=== PATIENT | female | born 1945 | race Caucasian/White ===

== ENCOUNTER → 2020-05-08 | Outpatient (CLI) | payer MEDICARE, BC ==
[~2020-05-08] VITALS: Ht 157.5 cm; Wt 80.3 kg
[~2020-05-08] MED LIST: amLODIPine BESYLATE 5 MG TAB ONE
== END | disposition home or self-care (01) ==
LOC: Rad HDHVI 08:43
PROVIDERS: ATTEND Internal Medicine Cardiovascular Disease
DX: I10 Essential (primary) hypertension (principal); E78.00 Pure hypercholesterolemia, unspecified; R06.02 Shortness of breath
CPT/HCPCS: 78452; 93017; 96374; A9500

== ENCOUNTER → 2020-05-13 | Outpatient (CLI) | payer MEDICARE, BC ==
[2020-05-13 11:41] LABS: Basophils # (auto) 0 10 ^3/uL (0-0.2); Basophils % (auto) 0.7 % (0.0-2.0); Eosinophils # (auto) 0.1 10 ^3/uL (0-0.8); Eosinophils % (auto) 2.2 % (0.0-7.0); Hematocrit 40.1 % (36.0-46.0); Hemoglobin 13.8 g/dL (12.2-16.2); Lymphocytes # (auto) 1.3 10 ^3/uL (0.4-5.4); Lymphocytes % (auto) 19.9 % (10.0-50.0); Mean Corpuscular Hemoglobin 32.3 pg (28.0-32.0); Mean Corpuscular Hgb Conc. 34.5 g/dL (32.0-36.0); Mean Corpuscular Volume 93.7 fL (80.0-100.0); Monocytes # (auto) 0.5 10 ^3/uL (0-1.3); Monocytes % (auto) 7.5 % (0.0-12.0); Neutrophils # (auto) 4.6 10 ^3/uL (1.6-8.6); Neutrophils % (auto) 69.7 % (37.0-80.0); Nucleated Red Blood Cells % 0.2 %; Platelet Count (auto) 297 10^3/uL (140-450); Red Blood Cells 4.28 10^6/uL (4.0-5.20); Red Cell Distribution Width 13.6 % (11.8-14.3); White Blood Cell 6.6 10^3/uL (4.4-10.8)
[2020-05-13 11:44] LABS: Urine Blood TRACE /uL (Negative); Urine Specific Gravity 1.011 (1.001-1.035)
[2020-05-13 11:58] LABS: Calcium 8.9 mg/dL (8.5-10.1); Potassium 3.9 mmol/L (3.5-5.1)
[2020-05-13 12:00] LABS: Free T4 (Free Thyroxine) 0.96 ng/dL (0.89-1.76)
[2020-05-13 12:04] LABS: BUN/Creatinine Ratio 14.9; Bilirubin, Total 0.7 mg/dL (0.2-1.0); Total Protein 7.5 g/dL (6.4-8.2)
== END | disposition home or self-care (01) ==
LOC: Rad HDHVI 08:08
PROVIDERS: ATTEND Internal Medicine Cardiovascular Disease
DX: I34.0 Nonrheumatic mitral (valve) insufficiency (principal); R06.02 Shortness of breath; D64.9 Anemia, unspecified; E11.9 Type 2 diabetes mellitus without complications; E55.9 Vitamin D deficiency, unspecified; I10 Essential (primary) hypertension; R00.2 Palpitations; R53.1 Weakness; R30.0 Dysuria; D51.3 Other dietary vitamin B12 deficiency anemia; R07.89 Other chest pain
CPT/HCPCS: 36415; 80053; 80061; 81003; 82306; 82607; 83036; 84439; 84443; 85025; 93306

== ENCOUNTER → 2021-06-10 | Outpatient (CLI) | payer MEDICARE, BC | END | disposition home or self-care (01) | LOC: LAB 09:20 | PROVIDERS: ATTEND Internal Medicine | DX: R94.4 Abnormal results of kidney function studies (principal) | CPT/HCPCS: 36415; 82565; 84520 ==

== ENCOUNTER 2021-06-12 09:29 | Emergency (ER) | payer MEDICARE, BC ==
[~2021-06-12] VITALS: Ht 157.5 cm; Wt 73.9 kg
[2021-06-12] MEDS ORDERED: MEPERIDINE HCL (50 MG/ML) 1 ML VIAL IM ONE (10:00)
[2021-06-12] MEDS ORDERED: PROMETHAZINE HCL 25 MG/ML 1ML IM ONE (10:00)
[2021-06-12] MEDS ORDERED: methylPREDNISolone SOD SUCC 125 MG/2 ML VL IM ONE (10:00)
[2021-06-12 10:19] VITALS: BP 151/86
[2021-06-12] MEDS ORDERED: PRED20TA2 PO (10:43)
[2021-06-12] MEDS ORDERED: TRAM-297 PO (10:44)
== END 2021-06-12 10:52 | disposition home or self-care (01) ==
LOC: ER 09:29
DX: G57.02 Lesion of sciatic nerve, left lower limb (principal); G89.29 Other chronic pain; M54.50 Low back pain, unspecified; I10 Essential (primary) hypertension; Z90.710 Acquired absence of both cervix and uterus
CPT/HCPCS: 96372; 99284; J2175; J2550; J2930

== ENCOUNTER → 2022-04-23 | Outpatient (CLI) | payer MEDICARE, BC ==
[~2022-04-23] MED LIST changes: +PRED20TA2 PO; +TRAM-297 PO; -amLODIPine BESYLATE 5 MG TAB ONE
== END | disposition home or self-care (01) ==
LOC: Rad HDHVI 09:11
PROVIDERS: ATTEND Internal Medicine
DX: R06.02 Shortness of breath (principal); M47.814 Spondylosis without myelopathy or radiculopathy, thoracic region
CPT/HCPCS: 71046

== ENCOUNTER → 2022-05-21 | Outpatient (CLI) | payer MEDICARE, BC ==
[2022-05-21 11:57] LABS: Urine Blood Negative /uL (Negative); Urine Specific Gravity 1.013 (1.001-1.035)
[2022-05-21 12:01] LABS: Basophils # (auto) 0 10 ^3/uL (0-0.2); Eosinophils # (auto) 0.1 10 ^3/uL (0-0.8); Eosinophils % (auto) 1.5 % (0.0-7.0); Hematocrit 39.2 % (36.0-46.0); Hemoglobin 13.3 g/dL (12.2-16.2); Lymphocytes # (auto) 1.3 10 ^3/uL (0.4-5.4); Lymphocytes % (auto) 26.8 % (10.0-50.0); Mean Corpuscular Hemoglobin 32.7 pg (28.0-32.0); Mean Corpuscular Volume 96.4 fL (80.0-100.0); Monocytes # (auto) 0.5 10 ^3/uL (0-1.3); Monocytes % (auto) 9.8 % (0.0-12.0); Neutrophils % (auto) 60.9 % (37.0-80.0); Nucleated Red Blood Cells % 0.1 %; Red Blood Cells 4.07 10^6/uL (4.0-5.20); Red Cell Distribution Width 14.5 % (11.8-14.3); White Blood Cell 4.9 10^3/uL (4.4-10.8)
[2022-05-21 12:02] LABS: Potassium 3.8 mmol/L (3.5-5.1)
[2022-05-21 12:10] LABS: BUN/Creatinine Ratio 14.7; Bilirubin, Total 0.7 mg/dL (0.2-1.0); Calcium 9.2 mg/dL (8.5-10.1); Total Protein 6.9 g/dL (6.4-8.2)
[2022-05-21 12:27] LABS: Free T4 (Free Thyroxine) 0.91 ng/dL (0.89-1.76)
== END | disposition home or self-care (01) ==
LOC: LAB 08:25
PROVIDERS: ATTEND Internal Medicine
DX: E78.5 Hyperlipidemia, unspecified (principal); E55.9 Vitamin D deficiency, unspecified
CPT/HCPCS: 36415; 80053; 80061; 81003; 82306; 82607; 83036; 84439; 84443; 85025

== ENCOUNTER 2023-01-01 10:36 | Emergency (ER) | payer MEDICARE, BC ==
[~2023-01-01] VITALS: Ht 170.2 cm; Wt 77.2 kg
[2023-01-01] MEDS ORDERED: PANTOPRAZOLE 40 MG/10 ML VIAL INJ IV ONE (10:45)
[2023-01-01] MEDS ORDERED: LORazepam 2MG/ML-1ML VIAL IV ONE (10:45)
[2023-01-01] MEDS ORDERED: ONDANSETRON HCL 4 MG/2 ML VIAL IV ONE (10:45)
[2023-01-01 10:47] VITALS: BP 135/71
[2023-01-01 10:57] VITALS: PULSE 66; RESP 14; O2SAT 97
[2023-01-01 11:35] LABS: Basophils # (auto) 0.1 10 ^3/uL (0-0.2); Basophils % (auto) 1.8 % (0.0-2.0); Eosinophils # (auto) 0.1 10 ^3/uL (0-0.8); Eosinophils % (auto) 1.4 % (0.0-7.0); Hematocrit 39.8 % (36.0-46.0); Hemoglobin 13.3 g/dL (12.2-16.2); Lymphocytes # (auto) 1.6 10 ^3/uL (0.4-5.4); Lymphocytes % (auto) 40.6 % (10.0-50.0); Mean Corpuscular Hemoglobin 32.7 pg (28.0-32.0); Mean Corpuscular Hgb Conc. 33.5 g/dL (32.0-36.0); Mean Corpuscular Volume 97.4 fL (80.0-100.0); Monocytes # (auto) 0.4 10 ^3/uL (0-1.3); Monocytes % (auto) 10.2 % (0.0-12.0); Neutrophils # (auto) 1.8 10 ^3/uL (1.6-8.6); Nucleated Red Blood Cells % 0.3 %; Red Blood Cells 4.09 10^6/uL (4.0-5.20); Red Cell Distribution Width 14.1 % (11.8-14.3); White Blood Cell 3.9 10^3/uL (4.4-10.8)
[2023-01-01 11:39] LABS: INR 0.98 (0.9-1.15); Partial Thromboplastin Time 29.3 SEC (24.5-34.5); Prothrombin Time 10.3 sec (9.3-11.8)
[2023-01-01 11:47] LABS: Acetaminophen < 2.0 UG/ML (10.0-20.0)
[2023-01-01 11:48] LABS: Alanine Aminotransferase 26 U/L (7-40); Albumin 4.3 g/dL (3.2-4.8); Alkaline Phosphatase 67 U/L (46-116); Anion Gap 11.4 (5-15); Aspartate Aminotransferase 36 U/L (13-40); BUN/Creatinine Ratio 16.4 (10.0-20.0); Blood Urea Nitrogen 10 mg/dL (9-23); Carbon Dioxide 23.6 mmol/L (20-30); Chloride 105 mmol/L (98-107); Glucose 91 mg/dL (74-106); Magnesium 2.1 mg/dL (1.6-2.6); Potassium 4.1 mmol/L (3.5-5.1); Sodium 140 mmol/L (136-145)
[2023-01-01 11:49] LABS: Bilirubin, Total 0.5 mg/dL (0.2-1.0); Total Protein 6.3 g/dL (5.7-8.2)
[2023-01-01 11:52] LABS: Salicylate < 3.0 mg/dL (2.8-20.0)
[2023-01-01 11:56] LABS: Blood Alcohol 397.1 mg/dL (<10)
[2023-01-01] MEDS ORDERED: FOLIC ACID 1 MG, MULTIPLE VITAMIN 10 ML, MAGNESIUM SULF SDV 50% 8 MEQ, THIAMINE INJ 100... INJ SCH ×5 (12:00)
== END 2023-01-01 12:40 | disposition left against medical advice (07) ==
LOC: EDBD 10:36 → ER 10:36
DX: F10.10 Alcohol abuse, uncomplicated (principal); I10 Essential (primary) hypertension; Z79.899 Other long term (current) drug therapy; Z98.890 Other specified postprocedural states; Y90.0 Blood alcohol level of less than 20 mg/100 ml
CPT/HCPCS: 36415; 70450; 71045; 72125; 80053; 80320; 80329; 83735; 83880; 84484; 85025; 85610; 85730; 99285; J3411; J3475; J7070

== ENCOUNTER 2023-01-15 14:31 | Emergency (ER) | payer MEDICARE, BC ==
[~2023-01-15] VITALS: Ht 160 cm; Wt 68.2 kg
[2023-01-15 14:45] VITALS: BP 129/80; PULSE 81; RESP 18; O2SAT 98
[2023-01-15] MEDS ORDERED: FOLIC ACID 1 MG, MULTIPLE VITAMIN 10 ML, MAGNESIUM SULF SDV 50% 8 MEQ, THIAMINE INJ 100... INJ SCH ×5 (15:22)
[2023-01-15] MEDS ORDERED: ONDANSETRON HCL 4 MG/2 ML VIAL IV ONE (15:30)
[2023-01-15] MEDS ORDERED: THIAMINE 100mg/ml INJ (200mg/2ml VIAL) IV ONE (15:30)
[2023-01-15 16:06] LABS: Basophils # (auto) 0.1 10 ^3/uL (0-0.2); Eosinophils # (auto) 0 10 ^3/uL (0-0.8); Eosinophils % (auto) 0.4 % (0.0-7.0); Lymphocytes # (auto) 1.6 10 ^3/uL (0.4-5.4); Monocytes # (auto) 0.6 10 ^3/uL (0-1.3); Monocytes % (auto) 6.6 % (0.0-12.0); Red Cell Distribution Width 13.6 % (11.8-14.3)
[2023-01-15 16:07] LABS: Basophils % (auto) 0.7 % (0.0-2.0); Hematocrit 43.2 % (36.0-46.0); Hemoglobin 14.9 g/dL (12.2-16.2); Lymphocytes % (auto) 18.4 % (10.0-50.0); Mean Corpuscular Hgb Conc. 34.5 g/dL (32.0-36.0); Mean Corpuscular Volume 98.5 fL (80.0-100.0); Neutrophils # (auto) 6.4 10 ^3/uL (1.6-8.6); Neutrophils % (auto) 73.9 % (37.0-80.0); Red Blood Cells 4.38 10^6/uL (4.0-5.20); White Blood Cell 8.6 10^3/uL (4.4-10.8)
[2023-01-15 16:52] LABS: Alanine Aminotransferase 18 U/L (7-40); Alkaline Phosphatase 74 U/L (46-116); Anion Gap 12 (5-15); Aspartate Aminotransferase 24 U/L (13-40); BUN/Creatinine Ratio 11.5 (10.0-20.0); Blood Urea Nitrogen 9 mg/dL (9-23); Calcium 9.2 mg/dL (8.7-10.4); Carbon Dioxide 24 mmol/L (20-30); Chloride 107 mmol/L (98-107); Glucose 107 mg/dL (74-106); Sodium 143 mmol/L (136-145)
[2023-01-15 16:53] LABS: Albumin 4.7 g/dL (3.2-4.8); Bilirubin, Total 0.3 mg/dL (0.2-1.0); Total Protein 7.5 g/dL (5.7-8.2)
== END 2023-01-15 16:30 | disposition left against medical advice (07) ==
LOC: ER 14:31 → EDUNIT# 14:31 → EDBD 14:31 → ER 16:30
DX: F10.129 Alcohol abuse with intoxication, unspecified (principal); I10 Essential (primary) hypertension; Z85.9 Personal history of malignant neoplasm, unspecified; Z90.710 Acquired absence of both cervix and uterus; Y90.0 Blood alcohol level of less than 20 mg/100 ml
CPT/HCPCS: 36415; 80053; 80320; 85025

== ENCOUNTER → 2024-01-05 | Outpatient (CLI) | payer MEDICARE, BC | END | disposition home or self-care (01) | LOC: Rad HDHVI 13:52 | PROVIDERS: ATTEND Internal Medicine Cardiovascular Disease | DX: M47.814 Spondylosis without myelopathy or radiculopathy, thoracic region (principal); M47.817 Spondylosis without myelopathy or radiculopathy, lumbosacral region | CPT/HCPCS: 71101; 72070; 72100 ==

== ENCOUNTER 2024-09-22 13:33 | Emergency (ER) | payer MEDICARE, BC ==
[~2024-09-22] VITALS: Ht 172.7 cm; Wt 73.0 kg
[2024-09-22] MEDS: HALOPERIDOL LACTATE 5 MG/ML INJ VIAL IM ONE ×2 (14:36→15:12)
--- NOTE | 2024-09-22 14:49 | ED.PDOC ---
Altered Mental Status HPI Comments 79 year old female presents to the ED via EMS with a chief complaint of ETOH intoxication onset today (09/22/24). PMHx HTN, cancer. Per EMS, patient was walking to the store, neighbor called 911 due to patient being intoxicated. EMS states patient was altered, aggressive and was placed on restraints prior to ED arrival. Upon ED arrival, patient is altered, yelling at staff, has urinary incontinence. She states she is not sure why she was brought to ED, she was walking to the store to buy dog food, admits to drinking alcoholic beverages today. Patient is altered, poor historian. Chief Complaint: ETOH Time Seen by MD: 14:30 Primary Care Provider: [email or web address] Reviewed Notes: Nurses Notes, Medications, Allergies Allergies: Coded Allergies: NO KNOWN ALLERGIES (Unverified , 05/08/20) Home Meds Active Scripts Tramadol Hcl (Ultram) 50 Mg Tab, 50 MG PO BID for 10 Days, #20 TAB Prov:ESTEE URBINA 06/12/21 Prednisone (Prednisone) 20 Mg Tab, 40 MG PO DAILY for 10 Days, #20 MG Prov:ESTEE URBINA 06/12/21 Information Source: Patient, Emergency Med Personnel Mode of Arrival: EMS Severity: Moderate Timing: Hours Duration: Since onset Prehospital treatment: Restraints Quality: Change in Behavior Recent: None History of: None Associated Signs and Symptoms: None Past Medical History PAST MEDICAL HISTORY: Cancer, HTN Surgical History: Hysterectomy BEREAVEMENT COORDINATOR History: No Pertinent BEREAVEMENT COORDINATOR History, Cervical Cancer Family History Family History: Reviewed,noncontributory to illness Social History Smoker: Non-Smoker Alcohol: Heavy Drugs: Denies Drug Use Lives In: Home Unable to Obtain due to: Altered Mental Status All Other Systems: Reviewed and Negative Physical Exam General Appearance: Mild Distress HEENT: Normal ENT Inspection, Pharynx Normal, TMs Normal Neck: Full Range of Motion, Non-Tender, Normal, Normal Inspection Respiratory: Chest Non-Tender, Lungs Clear, No Accessory Muscle Use, No Respiratory Distress, Normal Breath Sounds Cardiovascular: No Edema, No JVD, No Murmur, No Gallop, Normal Peripheral Pulses, Regular Rate/Rhythm Breast Exam: Deferred Gastrointestinal: No Organomegaly, Non Tender, No Pulsatile Mass, Normal Bowel Sounds, Soft Genitalia: Deferred Pelvic: Deferred Rectal: Deferred Extremities: No calf tenderness, Normal capillary refill, No pedal edema Musculoskeletal : Apperance: Normal Neurologic: Other (The patient was initially has been somewhat altered and it was screaming and belligerent) Cerebellar Function: Unable to Test Reflexes: Normal Skin: Dry, Normal Color, Warm Lymphatic: No Adenopathy Was a procedure done? Was a procedure done?: No Differential Diagnosis (ALOC) Differential Diagnosis: Dehydration, Seizure, Drug Overdose, ETOH Intoxication X-Ray, Labs, Meds, VS Vital Signs Date Time Temp Pulse Resp B/P (MAP) Pulse Ox O2 Delivery O2 Flow Rate FiO2 09/22/24 19:51 98.5 96 16 142/80 (100) 99 98.5 09/22/24 16:14 Room Air* 0 21 09/22/24 16:00 109 14 148/84 (105) 95 09/22/24 15:12 107 14 130/68 (88) 97 09/22/24 14:52 121 25 164/80 (108) 09/22/24 13:46 99.0 110 20 150/93 (112) 97 99.0 Lab Test 09/22/24 17:19 09/22/24 16:01 09/22/24 15:30 Range/Units HIV (1&2) Antibody Negative Negative White Blood Count 7.4 4.4-10.8 10^3/uL Red Blood Count 4.19 4.0-5.20 10^6/uL Hemoglobin 14.3 12.2-16.2 g/dL Hematocrit 42.1 36.0-46.0 % Mean Corpuscular Volume 100.5 H 80.0-100.0 fL Mean Corpuscular Hemoglobin 34.1 H 28.0-32.0 pg Mean Corpuscular Hemoglobin Concent 33.9 32.0-36.0 g/dL Red Cell Distribution Width 14.5 H 11.8-14.3 % Platelet Count 306 140-450 10^3/uL Mean Platelet Volume 6.7 L 6.9-10.8 fL Neutrophils (%) (Auto) 74.1 37.0-80.0 % Lymphocytes (%) (Auto) 17.9 10.0-50.0 % Monocytes (%) (Auto) 6.6 0.0-12.0 % Eosinophils (%) (Auto) 0.5 0.0-7.0 % Basophils (%) (Auto) 0.9 0.0-2.0 % Neutrophils # (Auto) 5.5 1.6-8.6 10 ^3/uL Lymphocytes # (Auto) 1.3 0.4-5.4 10 ^3/uL Monocytes # (Auto) 0.5 0-1.3 10 ^3/uL Eosinophils # (Auto) 0 0-0.8 10 ^3/uL Basophils # (Auto) 0.1 0-0.2 10 ^3/uL Nucleated Red Blood Cells 0.2 % Sodium Level 145 136-145 mmol/L Potassium Level 4.4 3.5-5.1 mmol/L Chloride Level 114 H 98-107 mmol/L Carbon Dioxide Level 18 L 20-31 mmol/L Anion Gap 13 5-15 Blood Urea Nitrogen 9 9-23 mg/dL Creatinine 0.68 0.550-1.02 mg/dL Glomerular Filtration Rate Calc 89 >90 mL/min BUN/Creatinine Ratio 13.2 10.0-20.0 Serum Glucose 89 74-106 mg/dL Calcium Level 9.7 8.7-10.4 mg/dL Plasma/Serum Blood Alcohol 171.0 H <10 mg/dL Hepatitis B Surface Antigen Pending Hepatitis B Surface Antibody Pending Hepatitis C Antibody Pending Current Medications Medications (Trade) Dose Ordered Sig/Joe Route Start Time Stop Time Status Last Admin Haloperidol Lactate (Haldol) 5 mg ONCE ONCE IM 09/22/24 14:30 09/22/24 14:31 DC 09/22/24 14:36 Lorazepam (Ativan Inj) 1 mg ONCE ONCE IM 09/22/24 15:00 09/22/24 15:01 DC 09/22/24 15:12 Diphenhydramine HCl (Benadryl Injection) 25 mg ONCE ONCE IM 09/22/24 15:00 09/22/24 15:01 DC 09/22/24 15:03 The patient was given Haldol 5 mg IM, Ativan 1 mg IM and 25 mg of Benadryl IM The patient's alcohol level was 171 Initially the patient was placed in four-point restraints because she was being very difficult and spitting on people The CBC and chemistry panel are within normal limits We have observed the patient here in the emergency department's had at this time the patient is cooperative. The patient was able to answer all questions and ambulate without difficulty The patient was now discharged. Images Reviewed?: Images reviewed and evaluated by me Time of 1ST Reevaluation: 15:00 Reevaluation 1ST: Unchanged Patient Education/Counseling: Diagnosis, Treatment, Prognosis, Need For Follow Up Family Education/Counseling: No Family Present Departure 1 Departure Time of Disposition: 20:22 Impression: Primary Impression: Alcohol intoxication Qualified Codes: F10.920 - Alcohol use, unspecified with intoxication, uncomplicated Additional Impression: Psychotic episode Disposition: 01 HOME / SELF CARE / HOMELESS Condition: Fair Discharged With: Self Critical Care Note Critical Care Time?: No Stability Stability form required: No Heart Score Heart Score: Heart Score Response (Comments) Value History N/A 0 EKG N/A 0 Age N/A 0 Risk Factors N/A 0 Troponin N/A 0 Total 0 I personally scribed for DESIREE MARISCAL MD ([email or web address]) on 09/22/24 at 14:49. Electronically submitted by Namrata Amyaa ([email or web address]). DESIREE MARISCAL MD September 22, 2024 14:49
[2024-09-22] MEDS: diphenhdrAMINE HCL 50 MG/1 ML VL IM ONE (15:03)
[2024-09-22] MEDS: LORazepam 2MG/ML-1ML VIAL IM ONE (15:12)
[2024-09-22 15:49] LABS: Potassium 4.4 mmol/L (3.5-5.1)
[2024-09-22 15:50] LABS: Anion Gap 13 (5-15)
[2024-09-22 15:52] LABS: Calcium 9.7 mg/dL (8.7-10.4)
[2024-09-22 15:56] LABS: BUN/Creatinine Ratio 13.2 (10.0-20.0); Blood Urea Nitrogen 9 mg/dL (9-23); Carbon Dioxide 18 mmol/L (20-31); Chloride 114 mmol/L (98-107); Glucose 89 mg/dL (74-106); Sodium 145 mmol/L (136-145)
[2024-09-22 16:18] LABS: Basophils # (auto) 0.1 10 ^3/uL (0-0.2); Eosinophils # (auto) 0 10 ^3/uL (0-0.8); Eosinophils % (auto) 0.5 % (0.0-7.0); Mean Corpuscular Hemoglobin 34.1 pg (28.0-32.0); Monocytes # (auto) 0.5 10 ^3/uL (0-1.3); Nucleated Red Blood Cells % 0.2 %
[2024-09-22 16:21] LABS: Basophils % (auto) 0.9 % (0.0-2.0); Hematocrit 42.1 % (36.0-46.0); Hemoglobin 14.3 g/dL (12.2-16.2); Lymphocytes # (auto) 1.3 10 ^3/uL (0.4-5.4); Lymphocytes % (auto) 17.9 % (10.0-50.0); Mean Corpuscular Hgb Conc. 33.9 g/dL (32.0-36.0); Mean Corpuscular Volume 100.5 fL (80.0-100.0); Monocytes % (auto) 6.6 % (0.0-12.0); Neutrophils # (auto) 5.5 10 ^3/uL (1.6-8.6); Neutrophils % (auto) 74.1 % (37.0-80.0); Platelet Count (auto) 306 10^3/uL (140-450); Red Blood Cells 4.19 10^6/uL (4.0-5.20); Red Cell Distribution Width 14.5 % (11.8-14.3); White Blood Cell 7.4 10^3/uL (4.4-10.8)
[2024-09-22 19:25] VITALS: PULSE 94; O2SAT 99
[2024-09-22 19:51] VITALS: BP 142/80; PULSE 96; RESP 16; TEMP 98.5; O2SAT 99
[2024-09-25 11:06] LABS: Hepatitis B Surface Antibody Negative (Negative); Hepatitis B Surface Antigen Negative (Negative)
== END 2024-09-22 21:19 | disposition home or self-care (01) ==
LOC: EDBD 13:33 → EDUNIT# 13:33 → ER 13:37
DX: F10.129 Alcohol abuse with intoxication, unspecified (principal); F23 Brief psychotic disorder; R32 Unspecified urinary incontinence; I10 Essential (primary) hypertension; Y90.6 Blood alcohol level of 120-199 mg/100 ml; Z85.89 Personal history of malignant neoplasm of other organs and systems; Z90.710 Acquired absence of both cervix and uterus; Z79.52 Long term (current) use of systemic steroids; Z79.899 Other long term (current) drug therapy
CPT/HCPCS: 36415; 80048; 80320; 86703; 86706; 86803; 87340; 96372; 99285; J1200; J1630; J2060